=== PATIENT | female | born 1950 | race Caucasian/White ===

== ENCOUNTER → 2016-12-06 | Outpatient (CLI) | payer BC ==
[~2016-12-06] MED LIST: ASPIRIN; CALCIUM 500 + D1 TAB; LEVAQUIN; LORTAB 7.5-5001 TAB PO; SYNTHROID; ZITHROMAX
--- NOTE | ~2016-12-06 | CR127 ---
[facility]. [facility] A Service of [facility] & [facility] RADIOLOGY TEXT RESULTS PATIENT: CHRISTY AMBROSIO LOCATION: [facility] : 48 UNIT #: [id number] AGE: [address]: Horacio Maldonado DPM SEX: F ORDER DR: [id number] [address] [address] [id number] O MR#: [id number] Acc #: [id number] NAME: CHRISTY AMBROSIO : 1950 SEX: F STUDY DATE/TIME: 12/06/2016 16:36 UNIT: [facility] ROOM: STUDY DESCRIPTION: CR Foot Complete Min 3 View Rt Attending Physician: Horacio Maldonado D.P.M. Referring Physician: Horacio Maldonado D.P.M. Ordering Physician: Horacio Maldonado D.P.M. Primary Care Physician: Oren Mujica M.D. MEDICAL IMAGING REPORT This report is preliminary unless electronic signature is present. EXAM Right foot, 3 views, 12/06/2016, 1636 hours. CLINICAL HISTORY 66-year-old woman with pain, hammertoe deformity second toe. Numbness, swelling and pain in both feet. COMPARISON None. FINDINGS AP, lateral and oblique views demonstrate overall normal bone density. There is no fracture or dislocation. There is mild hallux valgus deformity and degenerative change at the first metatarsal-phalangeal joint. Lateral view demonstrates hammertoe deformity which I believe is at the second toe. No fracture is seen. IMPRESSION 1. No acute fracture or periosteal reaction. 2. Have hallux valgus deformity with moderate degenerative change at the first metatarsal-phalangeal joint. 3. Hammertoe deformity of the second toe. No fracture seen. 4. Moderate plantar calcaneal spur. Dictated by... Tracy Marquez M.D. THIS IS AN ELECTRONICALLY VERIFIED REPORT Tracy Marquez M.D. at 12/08/2016 9:30 AM DEMI/dale TD: 12/07/2016 16:03 STS. [facility] A Service of [facility] & [facility] RADIOLOGY TEXT RESULTS PATIENT: CHRISTY AMBROSIO [id number] [birth year] UNIT #: [id number] AGE: [address]: Horacio Maldonado DPM SEX: F ORDER DR: ANGI #: [id number] MEDICAL IMAGING REPORT Page 1 of 1
--- NOTE | ~2016-12-06 | CR126 ---
[facility]. [facility] A Service of [facility] & [facility] RADIOLOGY TEXT RESULTS PATIENT: CHRISTY AMBROSIO LOCATION: [facility] : 48 UNIT #: [id number] AGE: [address]: Horacio Maldonado DPM SEX: F ORDER DR: [id number] [place] [id number] O MR#: [id number] Acc #: [id number] NAME: CHRISTY AMBROSIO : 1950 SEX: F STUDY DATE/TIME: 12/06/2016 1636 UNIT: [facility] ROOM: STUDY DESCRIPTION: CR Foot Complete Min 3 View Lt Attending Physician: Horacio Maldonado D.P.M. Referring Physician: Horacio Maldonado D.P.M. Ordering Physician: Horacio Maldonado D.P.M. Primary Care Physician: Oren Mujica M.D. MEDICAL IMAGING REPORT This report is preliminary unless electronic signature is present. EXAM Left foot 3 views, 12/06/2016, 1636 hours. CLINICAL HISTORY Hammertoe deformity, bilateral foot pain, swelling and numbness. COMPARISON None FINDINGS AP, lateral, and oblique views demonstrate a mild flattening of the foot. There is mild degenerative change at the first metatarsophalangeal joint. There is mild hammertoe deformity at the second toe. There is no fracture. IMPRESSION Mild degenerative change at the first MTP joint. Second toe hammer deformity noted. No fracture seen. Dictated by... Tracy Marquez M.D. THIS IS AN ELECTRONICALLY VERIFIED REPORT Tracy Marquez M.D. at 12/08/2016 9:30 AM DEMI/[place] TD: 12/07/2016 15:57 JOB #: [id number] MEDICAL IMAGING REPORT Page 1 of 1
== END | disposition home or self-care (01) ==
LOC: SRAD 16:19
DX: M20.41 Other hammer toe(s) (acquired), right foot (principal); M20.42 Other hammer toe(s) (acquired), left foot; M77.31 Calcaneal spur, right foot; M20.11 Hallux valgus (acquired), right foot
CPT/HCPCS: 73630

== ENCOUNTER → 2017-01-02 | Outpatient (CLI) | payer BC ==
--- NOTE | ~2017-01-02 | MY29 ---
[facility] A Service [facility] RADIOLOGY TEXT RESULTS PATIENT: CHRISTY AMBROSIO LOCATION: [facility] : 48 UNIT #: [id number] AGE: [address]: Oren Mujica MD SEX: F ORDER DR: [id number] [facility] [address] [place], [place] [address] [id number] O MR#: [id number] Acc #: [id number] NAME: CHRISTY AMBROSIO : 1950 SEX: F STUDY DATE/TIME: 01/02/2017 9:55 UNIT: [facility] ROOM: STUDY DESCRIPTION: MY MELI SCREENING W/ CAD BILAT Attending Physician: Oren Mujica M.D. Referring Physician: Oren Mujica M.D. Ordering Physician: Oren Mujica M.D. Primary Care Physician: Oren Mujica M.D. MEDICAL IMAGING REPORT This report is preliminary unless electronic signature is present EXAM Digital screening mammogram, 01/02/2017, [facility]. HISTORY 66-year-old woman no risk elevation. Annual screen. COMPARISON Mammograms date to 08/13/2005 with most recent 12/25/2015. FINDINGS Digital imaging of each breast was completed utilizing standard craniocaudal and mediolateral-oblique projections. Review and interpretation of digital mammograms include a second review in conjunction with FDA-approved CAD device. There is an overall increase in the parenchymal presentation bilaterally with a generalized fibronodular pattern in each breast. There are no breast masses and I see no asymmetry in the parenchymal presentation. There are no suspicious microcalcifications and I see no architectural disturbance. IMPRESSION Benign mammogram. One-year followup recommended. Patients over the age of 40 are entered into a reminder system with target due date for the next mammogram. A result letter will also be sent to the patient. BIRADS: 2 Benign finding Dictated by... Herberth Kendrick M.D. [facility] A Service of [facility] RADIOLOGY TEXT RESULTS PATIENT: CHRISTY AMBROSIO [id number] 48 UNIT #: [id number] AGE: [address]: Oren Mujica MD SEX: F ORDER DR: THIS IS AN ELECTRONICALLY VERIFIED REPORT Herberth Kendrick M.D. at 01/02/2017 3:22 PM Lauren TD: 01/02/2017 13:42 JOB #: [id number] MEDICAL IMAGING REPORT Page 1 of 1 COPY
== END | disposition home or self-care (01) ==
LOC: CWCC 09:15
DX: Z12.31 Encounter for screening mammogram for malignant neoplasm of breast (principal)
CPT/HCPCS: G0202